=== PATIENT | male | born 1965 | race Caucasian/White ===

== ENCOUNTER 2017-07-05 13:48 | Emergency (ER) | payer MEDICARE ==
[~2017-07-05] VITALS: Ht 180.3 cm; Wt 79.0 kg
[~2017-07-05 13:48] MED LIST: CARB1TAB3 PO; CYCL-259 PO; DIAZ5TAB PO; GABA600T2 PO; METO25TA4 PO; MULT-326 PO; ONDA4TAB7 PO; OXYC10TA72 PO; OXYC1TAB9 PO; OXYC20TA2 PO; OXYC5TAB3 PO; OXYM10TA22 PO; POLY17PO5 PO; PRED50TA PO; RIVA1TAB PO; VITA1CAP PO
[2017-07-05 15:01] LABS: HEMATOCRIT 61.4 % (39.2-51.8); HEMOGLOBIN 20.7 g/dL (13.7-18.0); WHITE BLOOD COUNT 4.7 x10^3/uL (3.4-10)
[2017-07-05 15:09] LABS: BLOOD UREA NITROGEN 18 mg/dL (7-18)
[2017-07-05 18:35] VITALS: BP 165/99
== END 2017-07-05 18:38 | disposition home or self-care (01) ==
LOC: ED 17:52
DX: I10 Essential (primary) hypertension (principal); D75.1 Secondary polycythemia; Z86.718 Personal history of other venous thrombosis and embolism
CPT/HCPCS: 36415; 80048; 82040; 85025; 99195; 99284